=== PATIENT | female | born 1930 | race Caucasian/White ===

== ENCOUNTER → 2016-08-06 | Outpatient (CLI) | payer MEDICARE, OTHER ==
[2016-08-06 09:26] LABS: BASOPHILS % (AUTO) 0 % (0-2); EOSINOPHILS # (AUTO) 0.1 10^3uL; EOSINOPHILS % (AUTO) 2 % (0-4); LYMPHOCYTES # (AUTO) 1.3 X10^3; MEAN CORPUSCULAR HGB CONC 32.3 g/dL (31.0-37.0); MEAN PLATELET VOLUME 10.4 FL (6.0-9.5); MONOCYTES # (AUTO) 0.4 X10^3; MONOCYTES % (AUTO) 7 % (3-11); NEUTROPHILS # (AUTO) 4.1 X10^3; NEUTROPHILS % (AUTO) 68 % (51-67); PLATELET COUNT 234 10^3uL (150-450); WHITE BLOOD COUNT 6.01 10^3uL (4.0-11.0)
[2016-08-06 09:31] LABS: MEAN CORPUSCULAR HEMOGLOBIN 25.4 PG (26.0-34.0); MEAN CORPUSCULAR VOLUME 79 FL (80-100)
[2016-08-06 09:32] LABS: ANION GAP 12.8 MEQ/L (3-15); CALCULATED IONIZED CALCIUM 4.2 mg/dL (3.8-4.6); MAGNESIUM* 2.1 mg/dL (1.6-2.3); TOTAL PROTEIN 6.8 g/dL (6.4-8.5)
[2016-08-06 09:52] LABS: BILIRUBIN,URINE Negative (Negative); CLARITY,URINE Clear; COLOR,URINE Yellow; GLUCOSE, URINE (UA) Negative (Negative); LEUKOCYTE ESTERASE ,URINE 1+ (Negative); UROBILINOGEN,URINE 0.2 mg/dL (0.2-1.0)
[2016-08-06 10:09] LABS: RBC,URINE 0-2 /HPF; URINE CENTRIFUGED VOLUME 12 mL
== END ==
LOC: RAD 08:59
PROVIDERS: ATTEND Family Medicine
DX: I49.8 Other specified cardiac arrhythmias (principal); R79.89 Other specified abnormal findings of blood chemistry; E78.2 Mixed hyperlipidemia; D50.8 Other iron deficiency anemias; N39.0 Urinary tract infection, site not specified; R82.99 Other abnormal findings in urine; E13.65 Other specified diabetes mellitus with hyperglycemia; E83.42 Hypomagnesemia; E03.2 Hypothyroidism due to medicaments and other exogenous substances; M81.0 Age-related osteoporosis without current pathological fracture; R06.00 Dyspnea, unspecified
CPT/HCPCS: 36415; 71020; 80053; 80061; 81003; 81015; 82306; 83036; 83735; 84436; 84443; 85025; 87088; 93005